=== PATIENT | male | born 1935 | race Native Hawaiian/Other Pacific Islander ===

== ENCOUNTER 2016-10-03 13:34 | Emergency (ER) | payer SELFPAY ==
[2016-10-03 13:40] VITALS: O2SAT 97
[2016-10-03] MEDS ORDERED: Sodium Chloride 0.9% 1,000 ML IV STA (13:55)
[2016-10-03 15:06] LABS: BASO % 0.3 % (0.0-2.0); EOS # 0.1 K/uL (0.0-0.7); HEMATOCRIT 43.2 % (35.0-51.0); LYMPH # 1.6 K/uL (1.0-4.3); LYMPH % 14.1 % (20.0-40.0); MEAN CELL VOLUME 93.6 fl (80.0-94.0); MEAN CORPUSCULAR HEMOGLOBIN 30.9 pg (27.0-31.0); MONO # 0.6 K/uL (0.0-0.8); MONO % 5.2 % (0.0-10.0); NEUT # 9.2 K/uL (1.8-7.0); NEUT % 79.4 % (50.0-75.0); RED CELL DISTRIBUTION WIDTH 13.4 % (11.5-14.5); WHITE BLOOD COUNT 11.6 K/uL (4.8-10.8)
[2016-10-03 15:15] LABS: RBC URINE 1 /hpf (0-3); URINE BILIRUBIN NEGATIVE (NEGATIVE); URINE BLOOD NEGATIVE (NEGATIVE); URINE COLOR YELLOW (YELLOW); URINE GLUCOSE (UA) 50 mg/dL (Normal); URINE KETONE NEGATIVE (NEGATIVE); URINE LEUKOCYTE ESTERASE NEG Leu/uL (Negative); URINE PROTEIN NEGATIVE (NEGATIVE); URINE UROBILINOGEN 0.2-1.0 mg/dL (0.2-1.0); WBC URINE < 1 /hpf (0-5)
[2016-10-03 15:16] LABS: ALB/GLOB RATIO 1.2 (1.0-2.1); ALKALINE PHOSPHATASE 74 U/L (38-126); ALT/SGPT 34 U/L (21-72); AST/SGOT 31 U/L (17-59); BILIRUBIN,TOTAL 0.3 mg/dl (0.2-1.3); BLOOD UREA NITROGEN 21 mg/dl (9-20); CARBON DIOXIDE 25 mmol/L (22-30); CHLORIDE 105 mmol/L (98-107); GFR AFRICAN-AMERICAN > 60; GLUCOSE,RANDOM 118 mg/dL (75-110); LIPASE 51 U/L (23-300); SODIUM 142 mmol/l (132-148); TOTAL PROTEIN 7.8 G/DL (6.3-8.2)
[2016-10-03 15:34] LABS: POTASSIUM 3.5 MMOL/L (3.6-5.0)
[2016-10-03] MEDS ORDERED: Potassium Chloride 20 mEq ER Tab PO STA (15:49)
--- NOTE | 2016-10-03 16:13 | RAD ---
HISTORY: Vertigo COMPARISON: No prior. FINDINGS: LUNGS: Suspect minor linear atelectasis and or scarring left medial lung base PLEURA: No significant pleural effusion identified, no pneumothorax apparent. CARDIOVASCULAR: Heart size is upper limits of normal/borderline enlarged. Aorta is ectatic and uncoiled. OSSEOUS STRUCTURES: Minor multilevel degenerative spondylosis of the thoracic spine. VISUALIZED UPPER ABDOMEN: Normal. OTHER FINDINGS: None. IMPRESSION: Questionable minor linear atelectasis and or scarring left medial lung base
[2016-10-03 16:26] LABS: PARTIAL THROMBOPLASTIN TIME 30.1 Seconds (25.6-37.1)
--- NOTE | 2016-10-03 16:26 | ED PDOC ---
HPI: General Adult Time Seen by Provider: 10/03/16 13:45 Chief Complaint (Nursing): Dizziness/Lightheaded Chief Complaint (Provider): Dizziness History Per: Patient History/Exam Limitations: no limitations Onset/Duration Of Symptoms: Mins ([employer] WORK[employer]) Have you had recent travel within the past 21 days to any of the following countries: [place], [place], [place] or [place]?: No Current Symptoms Are (Timing): Still Present Additional History Per: Family (Son) Additional Complaint(s): 81 year old male accompanied by and son presents to ED with complaints of dizziness [employer] WORK[employer] and has a past medical history of HTN. Notes "room-spinning sensation", (+) nausea and vomiting. (-) headache, visual changes, paresthesias , weakness, SOB, or chest pain. Patient notes similar episode a few months ago but denies ever having an evaluation done. PCP: Non [facility] Past Medical History Reviewed: Historical Data, Nursing Documentation, Vital Signs Vital Signs: Last Vital Signs Temp 97.6 F 10/03/16 18:01 Pulse 66 10/03/16 18:01 Resp 18 10/03/16 18:01 BP 138/75 10/03/16 18:01 Pulse Ox 97 10/03/16 18:01 - Medical History PMH: HTN Denies: No Chronic Diseases - Surgical History Surgical History: No Surg Hx - Family History Family History: States: No Known Family Hx - Living Arrangements Living Arrangements: With Family - Social History Current smoker - smoking cessation education provided: No Ex-Smoker (has not smoked in the last 12 months): No Alcohol: None Drugs: Denies - Home Medications Home Medications: Ambulatory Orders Medication Instructions Recorded Meclizine [Meclizine*] 25 mg PO Q6 PRN #20 tab 10/03/16 Ondansetron ODT [Zofran ODT] 4 mg PO Q8H PRN #20 odt 10/03/16 amLODIPine [Norvasc] 1 tab PO DAILY 10/03/16 - Allergies Allergies/Adverse Reactions: Allergies Allergy/AdvReac Type Severity Reaction Status Date / Time No Known Allergies Allergy Verified 10/03/16 13:37 Review of Systems ROS Statement: Except As Marked, All Systems Reviewed And Found Negative Eyes: Negative for: Vision Change Cardiovascular: Negative for: Chest Pain Respiratory: Negative for: Shortness of Breath Gastrointestinal: Positive for: Nausea, Vomiting Neurological: Positive for: Dizziness. Negative for: Weakness, Headache, Other (Paresthesias) Physical Exam - Reviewed Nursing Documentation Reviewed: Yes Vital Signs Reviewed: Yes - Physical Exam Appears: Positive for: Uncomfortable Head Exam: Positive for: ATRAUMATIC, NORMOCEPHALIC Skin: Positive for: Normal Color, Warm, Dry Eye Exam: Positive for: Normal appearance, EOMI, PERRL Neck: Positive for: Normal Cardiovascular/Chest: Positive for: Regular Rate, Rhythm. Negative for: Murmur Respiratory: Positive for: Normal Breath Sounds. Negative for: Respiratory Distress Gastrointestinal/Abdominal: Positive for: Normal Exam, Soft. Negative for: Tenderness Extremity: Negative for: Deformity Neurologic/Psych: Positive for: Alert, power press operator II-XII (intact), Oriented, Cerebellar Tests (intact), Gait (steady). Negative for: Motor/Sensory Deficits - Laboratory Results Result Diagrams: 10/03/16 15:03 10/03/16 15:03 - ECG O2 Sat by Pulse Oximetry: 97 (RA) Pulse Ox Interpretation: Normal Medical Decision Making Medical Decision Makin Initial impression: vertigo Initial plan: * CT HEAD * EKG * Labs * Lipase * Trop I * PTT/PT * CXR * Antivert 25mg PO * K-Dur 20meq PO * NS IV * Zofran Inj 4mg IV * UA * Re-eval Scribe Attestation: Documented by Maria Isabel Arciniega acting as a scribe for Toma Edwards MD. Scribe Attestation: All medical record entries made by the Scribe were at my direction and personally dictated by me. I have reviewed the chart and agree that the record accurately reflects my personal performance of the history, physical exam, medical decision making, and the department course for this patient. I have also personally directed, reviewed, and agree with the discharge instructions and disposition. Disposition - Clinical Impression Clinical Impression: Vertigo - Disposition Referrals: [facility] [Outside] [facility] [Outside] Condition: IMPROVED Prescriptions: Meclizine [Meclizine*] 25 mg PO Q6 PRN #20 tab PRN Reason: Dizziness Ondansetron ODT [Zofran ODT] 4 mg PO Q8H PRN #20 odt PRN Reason: Nausea/Vomiting Instructions: Vertigo (ED)
[2016-10-03] MEDS ORDERED: Potassium Chloride 20 mEq ER Tab PO ONE (16:27)
--- NOTE | 2016-10-03 16:43 | CT ---
PROCEDURE: CT HEAD WITHOUT CONTRAST. HISTORY: Vertigo COMPARISON: None available. TECHNIQUE: Axial computed tomography images were obtained through the head/brain without intravenous contrast. Radiation dose: Total exam DLP = 892.98 mGy-cm. This CT exam was performed using one or more of the following dose reduction techniques: Automated exposure control, adjustment of the mA and/or kV according to patient size, and/or use of iterative reconstruction technique. FINDINGS: HEMORRHAGE: No acute parenchymal, subarachnoid or extra-axial hemorrhage. BRAIN: Mild chronic periventricular white matter ischemic changes seen extending peripherally into the deep white matter both cerebral hemispheres. Moderate generalized volume loss. Vascular calcifications left vertebral artery. VENTRICLES: No evidence of obstructive hydrocephalus. Incidental note made of cavum septum pellucidum and vergae. CALVARIUM: Unremarkable. PARANASAL SINUSES: Frontal sinuses are hypoplastic/atrophic. The remaining visualized paranasal sinuses are well-developed. Minimal mucosal thickening seen within the ethmoid air complex and both maxillary sinuses. MASTOID AIR CELLS: Unremarkable as visualized. No inflammatory changes. OTHER FINDINGS: None. IMPRESSION: No acute intracranial hemorrhage. Mild chronic periventricular white matter ischemic changes. Moderate generalized volume loss.
[2016-10-03 18:01] VITALS: BP 138/75; PULSE 66; RESP 18
[2016-10-03 18:02] VITALS: TEMP 97.6
--- NOTE | 2016-10-04 16:46 | CARD ---
APPROVED REPORT EKG Measurement Heart [id number] <Conclusion> Normal sinus rhythm Normal ECG
== END 2016-10-03 18:15 | disposition home or self-care (01) ==
LOC: H.ER 13:34
DX: R42 Dizziness and giddiness (principal); R11.2 Nausea with vomiting, unspecified; I10 Essential (primary) hypertension
CPT/HCPCS: 70450; 71010; 80053; 81003; 83690; 84484; 85025; 85610; 85730; 93005; 96360; 96361; 99284; J2405; J7040